=== PATIENT | female | born 1945 | race Caucasian/White ===

== ENCOUNTER 2017-01-21 15:29 | Inpatient (IN) | payer MEDICARE, BC ==
[2017-01-21] MEDS ORDERED: Piperacillin/Tazobactam 3.375 GM in Sodium Chloride 0.9% 100 ML IVPB SCH (16:15)
[2017-01-21 16:38] LABS: Hematocrit 18.1 % (36.0-47.0); Red Blood Cell (RBC) Count 2.42 mill/uL (4.20-5.40); White Blood Cell (WBC) Count 13.9 thou/uL (4.8-10.8)
[2017-01-21 16:51] LABS: Lactic Acid - Sepsis 4.6 mmol/L (0.5-2.2)
[2017-01-21 16:54] LABS: ALT (SGPT) 8 U/L (8-55); AST (SGOT) 16 U/L (5-34); Alkaline Phosphatase 112 U/L (40-150); Anion Gap 17 mmol/L (10-20); BUN (Urea Nitrogen) 32 mg/dL (9.8-20.1); Bilirubin, Total 0.4 mg/dL (0.2-1.2); CK (CPK) 140 U/L (29-168); Calc. Creatinine Clearance 0 mL/min (70-130); Carbon Dioxide 16 mmol/L (23-31); Chloride 104 mmol/L (98-107); Estimated GFR-MDRD 22; Globulin 2.4 g/dL (2.4-3.5); Protein, Total 4.4 g/dL (6.0-8.3)
[2017-01-21] MEDS ORDERED: Lorazepam 2 MG/ML VIAL ONE (16:54)
[2017-01-21 16:58] LABS: Troponin I 0.019 ng/mL (< 0.028)
[2017-01-21 17:05] LABS: Anisocytosis SLIGHT = 6-15 cells (100X) (0-5/hpf); Band 24 % (5-11); Hypochromia MODERATE=16-30 cells (100X) (0-5/hpf); Microcytosis SLIGHT = 6-15 cells (100X) (0-5/hpf); Neutrophil 73 % (42-75); Reactive Lymphocytes 1 % (0-10)
[2017-01-21] MEDS ORDERED: Levofloxacin/D5W 250 MG in Premix Bag 1 BAG IVPB SCH (17:31)
[2017-01-21] MEDS ORDERED: Acetaminophen 325 MG TAB PO PRN (17:31)
[2017-01-21] MEDS ORDERED: Ondansetron HCl/PF 4 MG/2 ML Vial IVP PRN (17:31)
[2017-01-21] MEDS ORDERED: Sodium Chloride 0.9% 1,000 ML IV SCH (17:31)
[2017-01-21 18:10] LABS: Fibrinogen 392 mg/dL (253-463)
[2017-01-21 18:11] LABS: PTT 29.1 SEC (22.9-36.1); Prothrombin Time 19.7 SEC (12.0-14.7)
[2017-01-21] MEDS ORDERED: Morphine Sulfate 2 MG/ML SYRINGE SLOW IVP PRN (18:29)
[2017-01-21 18:36] LABS: Lactic Acid - Sepsis 7.6 mmol/L (0.5-2.2)
[2017-01-21 18:48] LABS: Iron Less than 8 ug/dL (50-170)
--- NOTE | 2017-01-21 19:33 | PDOC.EVN ---
Event Note - Event Note Event Note: Pt has pneumoperitoneum with sbo and necrotic uterine mass in addition. POA sister does not want her to going to OR as she may not survive surgery with current labs and condition. She has agreed for Hospice and comfort care. [facility] hospice has been consulted from ER. Very poor prognosis with pt dipping her sbp into 50's. All active treatments are withdrawn and comfort measures has been instituted. Pastoral consult will be called from ER
--- NOTE | 2017-01-21 19:39 | HP ---
REASON FOR ADMISSION: Severe sepsis with septic shock, acute peritonitis, small bowel obstruction, pneumoperitoneum with likely rupture of viscous, severe anemia, acute kidney injury, metabolic acidosis, failure to thrive with severe protein malnutrition. HISTORY OF PRESENTING ILLNESS: Please note the majority of this history is obtained by my talking to patient's sister, Ms. Shiela Adkins, ER physician and patient's local friend. The patient is very restless and not oriented at present. Per patient's friend locally here, she was going down from last 3 weeks. She was becoming more pale, developed edema in her feet, had been feeling very lethargic. On Sunday, she had taken her to see her primary care physician, Dr. Julien. She was found to have had UTI. She was supposed to see refinery operator alkylation in the morning as a followup of this visit. Early this morning, the patient started to vomit and she had almost passed out and was very lethargic this morning. The friend had called patient's sister, Ms. Kuo who lives in [place] saying that she needs to come down here to see her sister as she was not looking good. The sister flew down from [place] on Sunday. On Sunday, per sister, patient was walking by herself very slowly, but was still lethargic. She has not been eating well. On arrival in the ER, the patient had blood pressure of 92/30, temperature of 96 degrees. Has hemoglobin of 5, white count of 13 with 24% bands and creatinine of 2.2 with serum bicarbonate of 16. She also has albumin of 2.0. PAST MEDICAL/SURGICAL HISTORY: As far as her sister knows, she has had cataract which were not removed as the eye doctor wanted her to get stronger prior to him removing it. She has dementia. No known surgical history per her sister. CURRENT MEDICATIONS: Takes vitamins and supplements. ALLERGIES: No known drug allergies. PERSONAL HISTORY: Does not smoke or drink alcohol. Does not abuse drugs. She lives in a condominium per sister. This condominium is on [address], and she is not sure if this is an assisted living facility. FAMILY HISTORY: Per sister, father lived up to 82 years. Mom at the age of 94 and has had dementia and code status is DNR. Power of finance attorney is patient 's sister, Shiela Adkins. The patient is single and has no children. REVIEW OF SYSTEMS: Cannot be obtained as patient is very agitated and not oriented at present. PHYSICAL EXAMINATION: GENERAL APPEARANCE: The patient is a 71-year-old female who appears very sick and pale. VITAL SIGNS: Blood pressure 90/34 on arrival, pulse 150 per minute, respiratory rate 24 per minute, temperature 96 degrees Fahrenheit, saturating 90 % on room air. NECK: Supple, no elevated JVD. HEENT: Pupils are equal and reacting to light. Oral cavity: Mucous membranes are dry and pale. NECK: Supple. No elevated JVD. CARDIOVASCULAR SYSTEM: S1, S2 heard. Tachycardic murmur plus. RESPIRATORY SYSTEM: Air entry 1+ bilateral. Scattered rhonchi plus in the infra-axillary area. ABDOMEN: Tender to touch. Has some guarding, but no rigidity as such. Patient winces her face even to mild palpation of the abdomen. EXTREMITIES: There is 2+ peripheral edema, no calf tenderness. VASCULAR SYSTEM: Peripheral pulses 1+ in the upper extremities, lower extremities it is barely palpable. No ischemic ulcerations or gangrene. CENTRAL NERVOUS SYSTEM: The patient moves all 4 extremities. No focal deficits seen. PSYCHIATRIC SYSTEM: Cannot be assessed due to patient's current agitation and confusion. LABORATORY DATA AND X-RAY FINDINGS: White count of 13, hemoglobin and hematocrit 5 and 18, platelet count is 439, MCV 74 with 73% neutrophils and 24% bands. Serum bicarbonate 16, BUN 32, creatinine 2.2, glucose 111. Lactic acid 4.6. Liver enzymes within normal limits. CK-MB 7.5, CK level is 140. Troponin I 0.01. BNP is 255, albumin is 2.0. Chest x-ray and CT abdomen is pending at present. CLINICAL IMPRESSION AND PLAN: The patient will be admitted to [facility] for severe sepsis with septic shock, severe anemia, acute kidney injury, metabolic acidosis , severe protein malnutrition. The patient's code status is DNR and I have confirmed this with Ms. Shiela Adkins, who is patient's sister and also the power of finance attorney for her. She is clearly aware of very poor prognosis. We will give 2 units of packed cells stat at present. The patient's heart rate is going up to 150s to 160s at present. She has received 2 liters of normal saline in the ER, the third bolus is currently going. Blood and urine cultures will be obtained and the patient will be placed on broad spectrum antibiotics including vancomycin, cefepime, and Levaquin. We will also obtain an echo with 2D Doppler for LV function. We will follow up on the CT abdomen and pelvis, and a portable chest x-ray, both of which are pending, still not done in the ER. I have given current updates to patient's sister who is clearly aware of very poor prognosis. We will continue to closely monitor her in IMCU. Please see addendum to this H&P with updates after CT abd results were found. MORAIMA
--- NOTE | 2017-01-21 20:24 | CT ---
ABDOMEN CT WITHOUT CONTRAST PELVIC CT WITHOUT CONTRAST: History: Altered mental status. Urinary tract infection. Progressive weakness. Comparison: None. Technique: An abdomen and pelvic CT performed without contrast. Coronal reformatted images are submi tted for interpretation. FINDINGS: ABDOMEN CT: There are extensive interstitial and alveolar opacities involving both lower lobes. Small bilateral effusions are identified. Heart size is at the upper limits of normal. There is pericardial fluid. There is fluid in the distal thoracic esophagus. Limited evaluation of the intraabdominal structures due to lack of IV contrast. Grossly, the solid o rgans are unremarkable. There is symmetric attenuation of the kidneys. No evidence of hydronephrosis. Limited evaluation of both ureters due to decreased intraabdominal fat. No obvious ureteral obstruction. There is evidence of hepatic and perisplenic fluid. Fluid tracks along both paracolic gutters. Distended stomach with fluid and ingested material. There are multiple distended fluid filled loops of small bowel. The distal small bowel loops are slightly less prominent than the proximal small bow el loops. The colon appears to be decompressed. There is no evidence of lymphadenopathy. There is evidence of intraabdominal free air in the perihep atic and perisplenic region. PELVIC CT: There is complex fluid in the pelvis. There is a large soft tissue mass in the expected position of the uterus with areas of air attenuation, measuring 8.1 x 8.3 cm. There appears to be a second mass emanating from this lesion which is predominately necrotic with central areas of air, measuring 10.2 x 7.6 cm. There is free fluid in the pelvis. No lymphadenopathy. There are no osteoblastic or osteolytic lesions. There is evidence of soft tissue edema due to anasarca. Urinary bladder is decompressed with Byrd catheterization. IMPRESSION: 1. Bilateral lower lobe pneumonia versus aspiration. 2. Pneumoperitoneum. 3. Small bowel obstruction. 4. Likely enlarged uterus with two necrotic masses . Evaluation of the two masses is limited due to lack of IV contrast. 5. Results of study discussed with Dr. Deras 01-21-17 at 6:03 p.m. POS: [facility]
--- NOTE | 2017-01-21 20:31 | RAD ---
ONE VIEW CHEST: History: Sepsis. Comparison: None. FINDINGS: Limited evaluation of the cardiac silhouette due to bilateral parenchymal opacities. There is obscur ation of both hemidiaphragms. Adequate aeration of the upper lungs. No pneumothorax. IMPRESSION: Bilateral lower lobe and lingula air space disease. Possible multifocal pneumonia. Continued surveil lima is recommended. POS: [facility]
[2017-01-21] MEDS ORDERED: Vancomycin HCl 1 GM in Premix Bag 1 BAG IVPB SCH (21:00)
[2017-01-22] MEDS ORDERED: Cefepime 1 GM in Sodium Chloride 0.9% 100 ML IVPB SCH (09:00)
== END 2017-01-21 20:58 | disposition hospice, inpatient (51) | DRG 871 ==
LOC: ERS 15:29 → T4-B 16:30
PROVIDERS: ADMIT Internal Medicine; ATTEND Internal Medicine
DX: A41.9 Sepsis, unspecified organism (principal); R65.21 Severe sepsis with septic shock; E43 Unspecified severe protein-calorie malnutrition; N17.9 Acute kidney failure, unspecified; K65.9 Peritonitis, unspecified; K56.609 Unspecified intestinal obstruction, unspecified as to partial versus complete obstruction; E87.2 Acidosis; D64.9 Anemia, unspecified; G30.9 Alzheimer's disease, unspecified; F02.80 Dementia in other diseases classified elsewhere, unspecified severity, without behavioral disturbance, psychotic disturbance, mood disturbance, and anxiety; Z68.1 Body mass index [BMI] 19.9 or less, adult; Z51.5 Encounter for palliative care; N85.9 Noninflammatory disorder of uterus, unspecified; Z66 Do not resuscitate; R62.7 Adult failure to thrive; Z78.1 Physical restraint status
CPT/HCPCS: 36415; 36430; 71010; 74176; 80053; 82533; 82550; 82553; 82607; 82728; 82746; 83540; 83550; 83605; 83880; 84484; 85025; 85049; 85300; 85362; 85379; 85384; 85610; 85730; 86850; 86900; 86901; 87040; 87086; 94760; A4353; J2060; J2270; J3370

== ENCOUNTER 2017-01-21 21:09 | Inpatient (IN) | payer OTHER ==
[2017-01-21] MEDS ORDERED: Hyoscyamine Sulfate SL 0.125 mg Tablet SL PRN (22:08)
[2017-01-21] MEDS ORDERED: Promethazine HCl 25 MG SUPP PR PRN (22:08)
[2017-01-21] MEDS ORDERED: Acetaminophen 325 MG TAB PO PRN (22:08)
[2017-01-21] MEDS ORDERED: Zolpidem Tartrate 5 MG TAB PO PRN (22:08)
[2017-01-21] MEDS ORDERED: Ondansetron ODT 4 MG TAB PO PRN (22:08)
[2017-01-21] MEDS ORDERED: Scopolamine 1.5 mg/72 hour Patch TOP PRN ×2 (22:08)
[2017-01-21] MEDS ORDERED: Lorazepam 1 MG TAB PO PRN ×2 (22:08)
[2017-01-21] MEDS ORDERED: Lorazepam 2 MG/ML VIAL SLOW IVP PRN ×2 (22:08)
[2017-01-21] MEDS ORDERED: diphenhydrAMINE HCl 25 MG CAP PO PRN (22:08)
[2017-01-21] MEDS ORDERED: chlorproMAZINE HCl 50 MG/2 ML AMP IM PRN ×2 (22:08)
[2017-01-21] MEDS ORDERED: diphenhydrAMINE HCl 50 MG/ML 1 ML VIAL IVP PRN (22:08)
[2017-01-21] MEDS ORDERED: Milk Of Magnesia 30 ML UDCUP PO PRN (22:08)
[2017-01-21] MEDS ORDERED: Haloperidol Lactate 5 MG/ML VIAL SLOW IVP PRN (22:08)
[2017-01-21] MEDS ORDERED: Loperamide HCl 2 MG CAP PO PRN (22:08)
[2017-01-21] MEDS ORDERED: Acetaminophen 650 MG Suppository PR PRN (22:08)
[2017-01-21] MEDS ORDERED: Ondansetron HCl/PF 4 MG/2 ML Vial IVP PRN (22:08)
[2017-01-21] MEDS ORDERED: Morphine Sulfate 10 mg/0.5 ml Oral Syringe SL PRN (22:08)
[2017-01-21] MEDS ORDERED: chlorproMAZINE HCl 25 MG in Sodium Chloride 0.9% 50 ML IVPB PRN (22:08)
[2017-01-21] MEDS ORDERED: Ibuprofen 200 MG TAB PO PRN (22:18)
[2017-01-21] MEDS ORDERED: Haloperidol 1 MG TAB PO PRN (22:21)
[2017-01-21 23:49] VITALS: BMI 14.8
[2017-01-21 23:53] VITALS: BP 69/46; TEMP 97.3
--- NOTE | 2017-01-22 07:36 | DS ---
Please note the patient has another account number that is [id number] prior to being placed in hospice with the . DATE OF ADMISSION: 01/21/2017 DATE OF : 01/21/2017 at 23:24 PRIMARY CAUSE OF : Sepsis, pneumoperitoneum, acute peritonitis, severe anemia with hemoglobin of 5, septic shock, acute kidney failure, metabolic acidosis, severe protein malnutrition with albumin of 2, failure to thrive, aspiration pneumonia, all of these in the last 24 hours. BRIEF COURSE DURING HOSPITALIZATION: Patient initially was brought to the emergency room as she was vomiting and was very lethargic. She ultimately passed out at home. She was brought by her sister who is also the power of erisa attorney and a local friend to the ER. On arrival, the patient had hemoglobin of 5, temperature of 96, creatinine of 2.2, serum bicarbonate of 16, albumin of 2, white count of 13 with 24% bands. Patient was hypotensive and was fluid resuscitated initially in the ER. Her CT of the abdomen and pelvis came back positive for pneumoperitoneum with small-bowel obstruction in addition to necrotic mass in the uterus. She also had bilateral aspiration pneumonia. Given her general physical condition and the need to go to OR emergently, the patient's family was given updates. Patient was DNR and the family did not want to pursue heroic measures including going to the OR. In view of her very poor prognosis, needing emergent laparotomy, the patient was placed in hospice. [facility] was consulted. She was under comfort care with no active interventions done. Patient breathed her last at 23:24 on 2016. The body will be released to family per hospital protocol. MORAIMA
== END 2017-01-21 23:24 | disposition expired | DRG 951 ==
LOC: T4-B 21:09
PROVIDERS: ADMIT Internal Medicine; ATTEND Internal Medicine
DX: Z51.5 Encounter for palliative care (principal); R65.21 Severe sepsis with septic shock; J69.0 Pneumonitis due to inhalation of food and vomit; E43 Unspecified severe protein-calorie malnutrition; A41.9 Sepsis, unspecified organism; K65.9 Peritonitis, unspecified; N17.9 Acute kidney failure, unspecified; K56.609 Unspecified intestinal obstruction, unspecified as to partial versus complete obstruction; E87.2 Acidosis; Z68.1 Body mass index [BMI] 19.9 or less, adult; R62.7 Adult failure to thrive; N85.9 Noninflammatory disorder of uterus, unspecified; F03.90 Unspecified dementia, unspecified severity, without behavioral disturbance, psychotic disturbance, mood disturbance, and anxiety; Z66 Do not resuscitate
CPT/HCPCS: 93005; 93010; J2270